=== PATIENT | male | born 1985 | race Caucasian/White ===

== ENCOUNTER 2020-10-29 20:59 | Emergency (ER) | payer BC ==
[~2020-10-29] VITALS: Ht 188 cm; Wt 112.7 kg
[2020-10-29] MEDS ORDERED: IV NORMAL SALINE 1,000ML 1,000 ML IV ONE (22:00)
--- NOTE | 2020-10-29 22:54 | PHYS DOC ---
Past History Past Medical History: No Pertinent History Alcohol Use: None General Adult EDM: Chief Complaint: FEVER HPI: HPI: 35-year-old male presents with fever. Patient has had a fever up to 103 for the last 3 days. He really does not have any other symptoms. He does not have a headache. He has had a couple episodes of vomiting today but no abdominal pain. No dysuria or increased urinary frequency. No significant cough, congestion, sore neck. He just decided that since his fever was staying the same despite ibuprofen he should come in for evaluation. Review of Systems: Review of Systems: Constitutional: Fever Eyes: Denies change in visual acuity HENT: Denies nasal congestion or sore throat Respiratory: Denies cough or shortness of breath Cardiovascular: Denies chest pain or edema GI: Denies abdominal pain, nausea, vomiting, bloody stools or diarrhea : Denies dysuria Musculoskeletal: Denies back pain or joint pain Integument: Denies rash Neurologic: Denies headache, focal weakness or sensory changes Endocrine: Denies polyuria or polydipsia Lymphatic: Denies swollen glands Psychiatric: Denies depression or anxiety Current Medications: Current Meds: Current Medications Medications (Trade) Dose Ordered Sig/Luana Start Time Stop Time Status Last Admin Dose Admin Sodium Chloride 1,000 ml @ 1,000 mls/hr 1X ONCE 10/29/20 22:00 10/29/20 22:59 Allergies: Allergies: Allergies Coded Allergies Type Severity Reaction Last Updated Verified No Known Drug Allergies 10/29/20 No Physical Exam: PE: Constitutional: Well developed, well nourished, no acute distress, non-toxic appearance. [] HENT: Normocephalic, atraumatic, bilateral external ears normal, oropharynx moist, no oral exudates, nose normal. [] Eyes: PERRLA, EOMI, conjunctiva normal, no discharge. [] Neck: Normal range of motion, no tenderness, supple, no stridor. [] Cardiovascular: Heart rate regular rhythm, no murmur [] Lungs & Thorax: Bilateral breath sounds clear to auscultation [] Abdomen: Bowel sounds normal, soft, no tenderness, no masses, no pulsatile masses. [] Skin: Warm, dry, no erythema, no rash. [] Back: No tenderness, no CVA tenderness. [] Extremities: No tenderness, no cyanosis, no clubbing, ROM intact, no edema. [] Neurologic: Alert and oriented X 3, normal motor function, normal sensory function, no focal deficits noted. [] Psychologic: Affect normal, judgement normal, mood normal. [] Current Patient Data: Vital Signs: Vital Signs Date Time Temp Pulse Resp B/P (MAP) Pulse Ox O2 Delivery O2 Flow Rate FiO2 10/29/20 21:18 103.2 71 16 123/68 (86) 96 Room Air EKG: EKG: [] Radiology/Procedures: Radiology/Procedures: [] Impressions: CT ABDOMEN+PELVIS W History: Reason: elevated liver enzymes, neutropenia Omni 300 75cc / Spl. Instructions: / History: Technique: After the administration of intravenous contrast, CT imaging was performed of the abdomen and pelvis. Multiplanar images are reviewed. Exposure: One or more of the following individualized dose reduction techniques were utilized for this examination: 1. Automated exposure control 2. Adjustment of the mA and/or kV according to patient size 3. Use of iterative reconstruction technique. Comparison: None Findings: Lower chest: Tiny bilateral pleural effusions with adjacent atelectasis. Abdomen and pelvis: The spleen measures 18.3 cm. Minimal periportal edema. The adrenal glands, pancreas and gallbladder are unremarkable. No biliary ductal dilatation. No hydronephrosis. No renal calculi. Mild infiltration of the mesentery adjacent to the mid duodenum extending along the inferior liver. Mild associated wall thickening. Enlarged periportal and periduodenal lymph nodes. No evidence of bowel obstruction. No pneumoperitoneum. Small pelvic free fluid. Normal appendix. Small lobulated fat-containing umbilical hernia. Small numerous mesenteric and retroperitoneal lymph nodes, likely reactive. Bones: No pathologic osseous lesions. Impression: 1. Mild duodenal wall thickening with adjacent fat stranding, may represent duodenitis. 2. Minimal periportal edema, may indicate nonspecific inflammation. 3. Small pelvic free fluid. 4. Splenomegaly. 5. Enlarged periportal and periduodenal lymph nodes, likely reactive. Electronically signed by: Nahed Mcmahon DO (10/30/2020 1:01 AM) [facility] DICTATED AND SIGNED BY: NAHED MCMAHON DO DATE: 10/30/20 0054 CC: AURELIANO DELEON DO; PCP,NO ~MTH0 0 XR CHEST 1V History: Reason: fever / Spl. Instructions: / History: Comparison: None. Findings: No consolidation or pleural effusion. Normal heart size. No pneumothorax. Impression: 1. No acute cardiopulmonary process. Electronically signed by: Nahed Mcmahon DO (10/29/2020 11:24 PM) [facility] DICTATED AND SIGNED BY: NAHED MCMAHON DO DATE: 10/29/20 0793 CC: AURELIANO DELEON DO; PCP,NO ~MTH0 0 Heart Score: C/O Chest Pain: N/A Risk Factors: Risk Factors: DM, Current or recent (<one month) smoker, HTN, HLP, family history of CAD, obesity. Risk Scores: Score 0 - 3: 2.5% MACE over next 6 weeks - Discharge Home Score 4 - 6: 20.3% MACE over next 6 weeks - Admit for Clinical Observation Score 7 - 10: 72.7% MACE over next 6 weeks - Early Invasive Strategies Course & Med Decision Making: Course & Med Decision Making Pertinent Labs and Imaging studies reviewed. (See chart for details) The patient's labs are significant for a white count of 1.6. His liver enzymes are elevated. A calculation of his absolute neutrophil count is 1176. This is less than 1500. The patient qualifies as neutropenic fever. I went back in and had a lengthy discussion with the patient and cannot come up with a reason for his neutropenia. He is not on chemotherapy. He has no chronic illnesses that he is aware of. He is rarely sick. He drinks alcohol rarely and his last drink was half a beer 3 days ago. He denies drug use. His drug screen is negative. His urinalysis is negative. His chest x-ray is negative for acute findings. I performed a CT of the abdomen and pelvis and he has splenomegaly and small bilateral effusions of the lungs. See official read for more details. I have ordered blood cultures and Zosyn for the patient. He would prefer to be transferred to . I have spoken with and Dr. Feliciano has accepted the patient for transfer and admission. The patient will likely be in the ED for a while as no bed is immediately available. He will go by ambulance. [] Dragon Disclaimer: Dragon Disclaimer: This electronic medical record was generated, in whole or in part, using a voice recognition dictation system. Departure Departure: Impression: Primary Impression: Neutropenic fever Additional Impressions: Splenomegaly Elevated liver enzymes Disposition: 02 SHORT TERM HOSPITAL Condition: STABLE Referrals: PCP,NO (PCP) AURELIANO DELEON 9, 2021 22:54
[2020-10-29] MEDS ORDERED: ACETAMINOPHEN 500 MG TABLET PO ONE (23:00)
[2020-10-29 23:05] LABS: BASO % 0 % (0-3); EOS % 1 % (0-3); HEMATOCRIT 40.5 % (39.0-53.0); HEMOGLOBIN 14.4 g/dL (13.0-17.5); LYMPH # 0.5 x10^3/uL (1.0-4.8); LYMPH % 32 % (24-48); MEAN CORPUSCULAR HEMOGLOBIN 32 pg (25-35); MEAN CORPUSCULAR HGB CONC 36 g/dL (31-37); MEAN CORPUSCULAR VOLUME 89 fL (79-100); MONO # 0.2 x10^3/uL (0.0-1.1); MONO % 12 % (0-9); NEUT # 0.9 x10^3uL (1.8-7.7); NEUT % 56 % (31-73); PLATELET COUNT 111 x10^3/uL (140-400); RED BLOOD COUNT 4.55 x10^6/uL (4.30-5.70); RED CELL DISTRIBUTION WIDTH 12.9 % (11.5-14.5)
[2020-10-29 23:11] LABS: CALCIUM 8.2 mg/dL (8.5-10.1); GFR 84.5; POTASSIUM 4.2 mmol/L (3.5-5.1)
[2020-10-29 23:12] LABS: WHITE BLOOD COUNT 1.6 x10^3/uL (4.0-11.0)
[2020-10-29 23:14] LABS: BARBITURATES NEG (NEG); BENZODIAZEPINES NEG (NEG); CANNABINOIDS NEG (NEG); COCAINE NEG (NEG); METHADONE NEG (NEG); OPIATES NEG (NEG); PHENCYCLIDINE NEG (NEG)
[2020-10-29 23:16] LABS: BACTERIA,URINE 0 /HPF (0-FEW); BILIRUBIN,URINE MOD (NEG); CLARITY,URINE CLEAR; COLOR,URINE YELLOW; GLUCOSE,URINE NEG (NEG); NITRITE,URINE NEG (NEG); RBC,URINE 0 /HPF (0-2); SQUAMOUS EPITHELIAL CELL,UR OCC /LPF; UROBILINOGEN,URINE >=8.0 mg/dL (0.2 mg/dL); WBC,URINE OCC /HPF (0-4)
[2020-10-29 23:18] LABS: AMPHETAMINE/METHAMPHETAMINE NEG (NEG)
[2020-10-29 23:18] LABS: ALBUMIN 3.5 g/dL (3.4-5.0); TOTAL BILIRUBIN 2.3 mg/dL (0.2-1.0); TOTAL PROTEIN 6.9 g/dL (6.4-8.2)
[2020-10-29 23:27] LABS: % BANDS 18 % (0-9); % LYMPHS 24 % (24-48); % MONOS 4 % (0-10); % SEGS 54 % (35-66)
--- NOTE | 2020-10-29 23:27 | RAD ---
XR CHEST 1V History: Reason: fever / Spl. Instructions: / History: Comparison: None. Findings: No consolidation or pleural effusion. Normal heart size. No pneumothorax. Impression: 1. No acute cardiopulmonary process. Electronically signed by: Mikie Newman DO (10/29/2020 11:24 PM) [facility] [place]
[2020-10-29 23:28] LABS: PLT ESTIMATE DECREASED (ADEQUATE)
[2020-10-29] MEDS ORDERED: CONTRAST GIVEN. MC PRN (23:45)
[2020-10-30] MEDS ORDERED: IOHEXOL 300 MG/ML 75 ML VIAL. IV ONE
[2020-10-30] MEDS ORDERED: PIPERACILLIN/TAZOBACTAM 4.5 GM in IV NORMAL SALINE 50ML 50 ML IV ONE (00:15)
[2020-10-30] MEDS ORDERED: IV NORMAL SALINE 50ML 50 ML ONE (00:37)
[2020-10-30] MEDS ORDERED: PIPERACILLIN/TAZOBACTAM 4.5 GM VIAL IV ONE (00:37)
--- NOTE | 2020-10-30 01:04 | RAD ---
CT ABDOMEN+PELVIS W History: Reason: elevated liver enzymes, neutropenia Omni 300 75cc / Spl. Instructions: / History: Technique: After the administration of intravenous contrast, CT imaging was performed of the abdomen and pelvis. Multiplanar images are reviewed. Exposure: One or more of the following individualized dose reduction techniques were utilized for thi s examination: 1. Automated exposure control 2. Adjustment of the mA and/or kV according to patient size 3. Use of iterative reconstruction technique. Comparison: None Findings: Lower chest: Tiny bilateral pleural effusions with adjacent atelectasis. Abdomen and pelvis: The spleen measures 18.3 cm. Minimal periportal edema. The adrenal glands, pancreas and gallbladder are unremarkable. No biliary ductal dilatation. No hydro nephrosis. No renal calculi. Mild infiltration of the mesentery adjacent to the mid duodenum extending along the inferior liver. M ild associated wall thickening. Enlarged periportal and periduodenal lymph nodes. No evidence of alonso l obstruction. No pneumoperitoneum. Small pelvic free fluid. Normal appendix. Small lobulated fat-con taining umbilical hernia. Small numerous mesenteric and retroperitoneal lymph nodes, likely reactive. Bones: No pathologic osseous lesions. Impression: 1. Mild duodenal wall thickening with adjacent fat stranding, may represent duodenitis. 2. Minimal periportal edema, may indicate nonspecific inflammation. 3. Small pelvic free fluid. 4. Splenomegaly. 5. Enlarged periportal and periduodenal lymph nodes, likely reactive. Electronically signed by: Mikie Newman DO (10/30/2020 1:01 AM) [facility]
[2020-10-30 01:33] LABS: MONONUCLEOSIS PATIENT NEGATIVE (NEGATIVE)
[2020-10-30 03:06] VITALS: BP 98/55
[2020-10-30] MEDS ORDERED: IV NORMAL SALINE 1,000ML 1,000 ML IV SCH (03:15)
[2020-10-30 16:12] LABS: EBNA IGG <18.0 U/mL (0.0-17.9)
== END 2020-10-30 03:11 | disposition short-term general hospital (02) ==
LOC: ER 20:59
DX: D70.9 Neutropenia, unspecified (principal); R50.81 Fever presenting with conditions classified elsewhere; R16.1 Splenomegaly, not elsewhere classified; R74.8 Abnormal levels of other serum enzymes; R11.10 Vomiting, unspecified
CPT/HCPCS: 36415; 71045; 74177; 80053; 80307; 81001; 83690; 85007; 85025; 86308; 86664; 86665; 86705; 86709; 86803; 87040; 87340; 96361; 96365; 99285; J2543; J7030; Q9967